=== PATIENT | female | born 1955 | race Caucasian/White ===

== ENCOUNTER 2021-12-27 12:57 | Outpatient (CLI) | payer MEDICARE, BC | END 2021-12-27 12:58 | disposition home or self-care (01) | LOC: CSHMAMMO 12:57 | PROVIDERS: ATTEND Advanced Practice Midwife | DX: N64.4 Mastodynia (principal) | CPT/HCPCS: 76642; 77066; G0279 ==

== ENCOUNTER 2022-07-05 13:04 | Outpatient (CLI) | payer MEDICARE, BC | END 2022-07-05 13:05 | disposition home or self-care (01) | LOC: CSHMAMMO 13:04 | PROVIDERS: ATTEND Advanced Practice Midwife | DX: R92.8 Other abnormal and inconclusive findings on diagnostic imaging of breast (principal); N60.22 Fibroadenosis of left breast; Z80.3 Family history of malignant neoplasm of breast; Z85.828 Personal history of other malignant neoplasm of skin; Z78.0 Asymptomatic menopausal state | CPT/HCPCS: 76642; 77065; 77080; G0279 ==

== ENCOUNTER 2024-07-19 14:33 | Outpatient (CLI) | payer MEDICARE, BC | END 2024-07-19 14:34 | disposition home or self-care (01) | LOC: CSHMAMMO 14:33 | PROVIDERS: ATTEND Internal Medicine | DX: M81.0 Age-related osteoporosis without current pathological fracture (principal) | CPT/HCPCS: 77080 ==

== ENCOUNTER 2025-02-21 14:59 | Outpatient (CLI) | payer MEDICARE, BC | END 2025-02-21 15:00 | disposition home or self-care (01) | LOC: CSHMAMMO 14:59 | PROVIDERS: ATTEND Advanced Practice Midwife | DX: Z12.31 Encounter for screening mammogram for malignant neoplasm of breast (principal); Z80.3 Family history of malignant neoplasm of breast; Z85.820 Personal history of malignant melanoma of skin | CPT/HCPCS: 77063; 77067 ==